=== PATIENT | female | born 1955 | race Caucasian/White ===

== ENCOUNTER 2018-09-03 03:36 | Inpatient (IN) | payer MEDICARE, OTHER ==
--- NOTE | 2018-09-03 03:42 | ERNOTE ---
Abdominal HPI - General Chief Complaint: Abdominal Pain Time Seen by Provider: 09/03/18 03:41 Source: patient Exam Limitations: no limitations - Immun/Allergies/Home Medications Allergies/Adverse Reactions: Allergies erythromycin base Allergy (Verified 09/03/18 04:43) metoclopramide [From Reglan] Allergy (Verified 09/03/18 04:43) paroxetine [From Paxil] Allergy (Verified 09/03/18 04:43) Tetracyclines Allergy (Verified 09/03/18 04:43) Home Medications: HOME MEDICATIONS Albuterol Sulfate [Ventolin HFA] 2 puff INHALATION Q6H 09/03/18 [Last Taken Unknown] Allopurinol [Zyloprim (Allopurinol)] 100 mg PO DAILY 09/03/18 [Last Taken Unknown] Atorvastatin Calcium 40 mg PO DAILY 09/03/18 [Last Taken Unknown] Dicyclomine HCl [Bentyl] 20 mg PO QID 09/03/18 [Last Taken Unknown] Gabapentin [Neurontin] 300 mg PO TID 09/03/18 [Last Taken Unknown] Gemfibrozil 600 mg PO DAILY 09/03/18 [Last Taken Unknown] Glimepiride 4 mg PO BID 09/03/18 [Last Taken Unknown] Insulin Glargine,Hum.rec.anlog [Lantus] 36 units SC DAILY 09/03/18 [Last Taken Unknown] Levothyroxine Sodium [Levoxyl] 125 mcg PO DAILY 09/03/18 [Last Taken Unknown] Omeprazole 20 mg PO DAILY 09/03/18 [Last Taken Unknown] Quetiapine Fumarate [Seroquel Xr] 100 mg PO HS 09/03/18 [Last Taken Unknown] Tiotropium [place] [Spiriva] 18 mcg INHALATION DAILY 09/03/18 [Last Taken Unknown] Venlafaxine HCl [Venlafaxine HCl ER] 150 mg PO BID 09/03/18 [Last Taken Unknown] metFORMIN HCL [Metformin HCl] 850 mg PO BID 09/03/18 [Last Taken Unknown] traZODone HCL [Trazodone HCl] 100 mg PO HS 09/03/18 [Last Taken Unknown] - History of Present Illness Narrative: Pt states approx 11:00 yesterday she began to have abdominal pain & bloating. She tried a suppository which gave small results. She tried oral laxatives without any improvement. She went to [facility] and was diagnosed with a SBO. Dr Michaels called me at 01:50 and I spoke to both Dr. Sullivan and Dr. Harrington about the transfer and they agreed to manage the patient once here. I accepted the patient in transfer. Pt arrived by [facility] with NG tube in place. Pt was very uncomfortable and placing NG to suction produced significant clear/ green fluid. Timing: getting worse Quality: moderate, severe, aching, fullness Activities at Onset: none Modifying Factors - (Worsens): Present: sitting up Associated Symptoms: Present: nausea, vomiting Prior Abdominal Problems: Present: similar symptoms - one previous SBO. Prior Treatment: Present: recently seen, treated by physician Review of Systems - Review of Systems Constitutional: Absent: recent illness, fever, chills Respiratory: Absent: shortness of breath Cardiology: Absent: chest pain Gastrointestinal/Abdominal: Present: See HPI, nausea, vomiting Genitourinary: Absent: frequency, dysuria Musculoskeletal: Absent: back pain Skin: Present: rash Neurological: Absent: headache Endocrine: Present: excessive sweating Medical History (Last Reviewed 09/03/18 @ 03:58 by Bernardo Yanez DO) Cholecystectomy planned Diabetes fusion of the cervical spine C4,5,6 Surgical History: Surgical History (Last Reviewed 09/03/18 @ 03:58 by Bernardo Yanez DO) H/O abdominal hysterectomy History of tonsillectomy Social History: Preferred Language Polish No Social History Section defined Physical Exam - Physical Exam General Appearance: Present: wd/wn, alert, mild distress Head Exam: Present: normal inspection, no evidence of injury Eye Exam: Normal inspection: bilateral, Eyelid inflammation: right Neck: Present: normal inspection, nontender, supple Respiratory: Present: no respiratory distress, normal breath sounds, no accessory muscle use Cardiovascular/Chest: Present: regular rate, rhythm Gastrointestinal/Abdominal: Present: abnormal bowel sounds - very slow but present, distended. Absent: guarding, rebound Back Exam: Present: normal inspection, no vertebral tenderness Extremity Exam: Present: normal inspection, no edema Neurological Exam: Present: alert, oriented, normal mood/affect, no motor/sensory deficits Skin Exam: Present: normal color, warm/dry Lymphatic Exam: Present: no adenopathy Progress - Results and Orders Patient's Lab Results:: I have reviewed the patient's lab results. Results and Orders: Labs from [facility] WBC; 10.1, H/H 14.9/ 44, PLT 306. UA 30 protein CMP: Glucose 291, alk phos 207, gap 16, protein 8.9. lipase 60. UDS tricyclic pos, otherwise WNL. - Vital Signs Patient's Vital Signs:: I have reviewed the patient's vital signs. - X-Ray X-Ray #1 X-Ray: abdomen Interpretation: Reviewed by me X-ray Comments: From K: flat and up of abdomen shows large dilated loops of bowel with a/f levels. Departure Clinical Impression: Small bowel obstruction - Departure Disposition: Still a patient Condition: Fair
[2018-09-03] MEDS ORDERED: PROCHLORPERAZINE EDISYLATE 5 MG/ML VIAL IV ONE (03:56)
[2018-09-03] MEDS ORDERED: MORPHINE SULFATE 2 MG/ML DISP.SYRIN IV ONE (03:57)
[2018-09-03] MEDS ORDERED: MORPHINE SULFATE 2 MG/ML DISP.SYRIN IV PRN (04:38)
[2018-09-03] MEDS ORDERED: ACETAMINOPHEN 1,000 MG/100 ML BTL IV PRN (07:01)
[2018-09-03] MEDS: NORMAL SALINE 1,000 ML IV PRN ×3 (07:42→22:05)
[2018-09-03] MEDS: ONDANSETRON HCL/PF 2 MG/ML VIAL IV PRN ×3 (07:46→20:42)
[2018-09-03] MEDS: ACETAMINOPHEN 1,000 MG/100 ML BTL IV PRN ×3 (07:52→20:44)
--- NOTE | 2018-09-03 08:20 | CONS ---
- Reason for consultation (1) Small bowel obstruction Date of Service: 09/03/18 HPI - General Date of Service: 09/03/18 Narrative: SBO Source: patient Exam Limitations: no limitations - History of Present Illness Initial Comments: Abner is a pleasant 63-year-old female who developed abdominal pain yesterday around 11 AM. She has had nausea and vomiting 5-6 times. She has a previous history of a small bowel obstruction one time. She has a previous history of an open cholecystectomy, appendectomy, and a hysterectomy. She has not passed any gas or had a bowel movement since yesterday. She feels as though her abdominal pain is getting worse. She has an NG tube in place. She is also feeling very hot. She is requesting ice chips. Timing/Duration: 24 hours Severity: moderate Modifying Factors - (Worsens): Reports: eating, movement Modifying Factors - (Improves): Reports: medication Associated Symptoms: fever/chills, loss of appetite, malaise, nausea, vomiting Allergies/Adverse Reactions: Allergies erythromycin base Allergy (Verified 09/03/18 04:43) metoclopramide [From Reglan] Allergy (Verified 09/03/18 04:43) paroxetine [From Paxil] Allergy (Verified 09/03/18 04:43) Tetracyclines Allergy (Verified 09/03/18 04:43) Home Medications: Home Medications Medication Instructions Recorded Last Taken Albuterol Sulfate [Ventolin HFA] 2 puff INHALATION Q6H 09/03/18 Unknown Allopurinol [Zyloprim 100 mg PO DAILY 09/03/18 Unknown (Allopurinol)] Atorvastatin Calcium 40 mg PO DAILY 09/03/18 Unknown Dicyclomine HCl [Bentyl] 20 mg PO QID 09/03/18 Unknown Gabapentin [Neurontin] 300 mg PO TID 09/03/18 Unknown Gemfibrozil 600 mg PO DAILY 09/03/18 Unknown Glimepiride 4 mg PO BID 09/03/18 Unknown Insulin Glargine,Hum.rec.anlog 36 units SC DAILY 09/03/18 Unknown [Lantus] Levothyroxine Sodium [Levoxyl] 125 mcg PO DAILY 09/03/18 Unknown Omeprazole 20 mg PO DAILY 09/03/18 Unknown Quetiapine Fumarate [Seroquel Xr] 100 mg PO HS 09/03/18 Unknown Tiotropium [place] [Spiriva] 18 mcg INHALATION DAILY 09/03/18 Unknown Venlafaxine HCl [Venlafaxine HCl 150 mg PO BID 09/03/18 Unknown ER] metFORMIN HCL [Metformin HCl] 850 mg PO BID 09/03/18 Unknown traZODone HCL [Trazodone HCl] 100 mg PO HS 09/03/18 Unknown Procedures Other peripheral nerve or ganglion decompression or lysis of adhesions (08/10/04) Release of carpal tunnel (08/10/04) Appendectomy Open cholecystectomy Hysterectomy Medications - Medications Current Medications: Current Medications Acetaminophen (Ofirmev) 1,000 mg in 100 mls @ 400 mls/hr IV Q6H PRN PRN Reason: Mild Pain Stop: 10/03/18 07:02 Last Admin: 09/03/18 07:52 Dose: 400 mls/hr Documented by: Sodium Chloride (Sodium Chloride 0.9%) 1,000 mls @ 150 mls/hr IV .Q6H40M PRN PRN Reason: HYDRATION Stop: 10/03/18 07:41 Last Admin: 09/03/18 07:42 Dose: 150 mls/hr Documented by: Ondansetron HCl (Zofran) 4 mg IV Q6H PRN PRN Reason: Nausea And Vomiting Stop: 10/03/18 07:34 Last Admin: 09/03/18 07:46 Dose: 4 mg Documented by: Review of Systems - Review of Systems Generalized/Overall Review: Present: Fever, Malaise EENTM: Present: No Symptoms Reported Respiratory: Present: No Symptoms Reported Cardiac: Present: No Symptoms Reported Abdominal: Present: Nausea, Vomiting, Abdominal Pain, Constipation Genitourinary: Present: No Symptoms Reported Musculoskeletal: Present: No Symptoms Reported Neurological: Present: No Symptoms Reported Skin: Present: No Symptoms Reported Endocrine: Present: No Symptoms Reported Physical Examination - Exam Vital Signs: Vital Signs - Last Taken Temp 36.0 C 09/03/18 05:37 Pulse 98 09/03/18 05:37 Resp 18 09/03/18 05:37 BP 134/63 09/03/18 05:37 Pulse Ox 92 L 09/03/18 05:37 O2 Oxygen Delivery Method Room Air Constitutional: Present: Alert, Oriented x3, Cooperative Neck: Present: supple Breasts: Present: Exam deferred Respiratory: Present: lungs clear Cardiovascular/Chest: Present: regular rate, rhythm Abdomen: Present: soft, obese, tender, distended Extremity: Present: normal range of motion Skin Exam: Present: normal color 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 I have ordered a CT scan of the abdomen and pelvis with oral and IV contrast. The oral contrast can be given through the NG tube. This can be both diagnostic and therapeutic. She has had multiple abdominal surgeries that could contribute to adhesions. We'll continue to monitor closely.
[2018-09-03] MEDS ORDERED: DIATRIZOATE MEGLUMINE, SODIUM 30 ML BTL PO ONE (09:25)
--- NOTE | 2018-09-03 09:40 | HP ---
Chief Complaint - Chief Complaint Date of Service: 09/03/18 Time of Service: 09:29 Chief Complaint: abdominal pain History of Present Illness: Patient with PMHx of previous SBO, diabetes, hypothyroidism, anxiety, depression, presented to the [place] ED for abdominal pain, and was diagnosed with a small bowel obstruction. She reports having had a hysterectomy approximately 21 years ago. She developed right sided abdominal pain yesterday. She reports always needing to push on her right lower abdomen in order to urinate or have a bowel movement. Her last BM was yesterday, and she also last urinated yesterday. She denies having a history of a hernia or cancer. Denies CP, upper respiratory symptoms, lower extremity swelling. She does report some shortness of breath, and is a tobacco user. Medical History (Last Reviewed 09/03/18 @ 05:31 by Myah Alford RN) Cholecystectomy planned Diabetes fusion of the cervical spine C4,5,6 Surgical History: Surgical History (Last Reviewed 09/03/18 @ 05:31 by Myah Alford RN) H/O abdominal hysterectomy History of tonsillectomy Family History: Family History (Last Updated 09/03/18 @ 05:31 by Myah Alford RN) Other No pertinent family history in first degree relatives Social History: Patient Lives/Resources With Spouse Utilized Occupation Disabled Preferred Language Hungarian Do you have any yarsanism or No cultural preference? Smoking Status Current every day smoker Have you smoked in the past 12 Yes months Alcohol Use none Drug Use none No Social History Section defined Review Of Systems (GEN) - Review of Systems Generalized/Overall Review: Absent: Fever Respiratory: Present: Shortness of Breath. Absent: Cough Cardiac: Absent: Chest Pain, Edema Abdominal: Present: Nausea, Vomiting. Absent: Diarrhea Genitourinary: Present: Oliguria. Absent: Frequency Immunizations: IMMUNIZATION HX Immunizations Up to Date Yes History of Influenza Vaccine Yes Hx Pneumococcal Vaccination Yes Allergies/Adverse Reactions: Allergies Allergy/AdvReac Type Severity Reaction Status Date / Time erythromycin base Allergy Verified 09/03/18 04:43 metoclopramide [From Reglan] Allergy Verified 09/03/18 04:43 paroxetine [From Paxil] Allergy Verified 09/03/18 04:43 Tetracyclines Allergy Verified 09/03/18 04:43 Home Medications: HOME MEDICATIONS Albuterol Sulfate [Ventolin HFA] 2 puff INHALATION Q6H 09/03/18 [Last Taken Unknown] Allopurinol [Zyloprim (Allopurinol)] 100 mg PO DAILY 09/03/18 [Last Taken Unknown] Atorvastatin Calcium 40 mg PO DAILY 09/03/18 [Last Taken Unknown] Dicyclomine HCl [Bentyl] 20 mg PO QID 09/03/18 [Last Taken Unknown] Gabapentin [Neurontin] 300 mg PO TID 09/03/18 [Last Taken Unknown] Gemfibrozil 600 mg PO DAILY 09/03/18 [Last Taken Unknown] Glimepiride 4 mg PO BID 09/03/18 [Last Taken Unknown] Insulin Glargine,Hum.rec.anlog [Lantus] 36 units SC DAILY 09/03/18 [Last Taken Unknown] Levothyroxine Sodium [Levoxyl] 125 mcg PO DAILY 09/03/18 [Last Taken Unknown] Omeprazole 20 mg PO DAILY 09/03/18 [Last Taken Unknown] Quetiapine Fumarate [Seroquel Xr] 100 mg PO HS 09/03/18 [Last Taken Unknown] Tiotropium [place] [Spiriva] 18 mcg INHALATION DAILY 09/03/18 [Last Taken Unknown] Venlafaxine HCl [Venlafaxine HCl ER] 150 mg PO BID 09/03/18 [Last Taken Unknown] metFORMIN HCL [Metformin HCl] 850 mg PO BID 09/03/18 [Last Taken Unknown] traZODone HCL [Trazodone HCl] 100 mg PO HS 09/03/18 [Last Taken Unknown] Exam - Exam Vital Signs: Vital Signs - Last Taken Temp 36.0 C 09/03/18 08:37 Pulse 100 09/03/18 08:37 Resp 16 09/03/18 08:37 BP 132/78 09/03/18 08:37 Pulse Ox 94 09/03/18 08:37 Constitutional: Present: Alert, Oriented x3, Cooperative, No distress, Obese Respiratory: Present: decreased breath sounds. Absent: wheezing Cardiovascular/Chest: Present: regular rate, rhythm Abdomen: Present: obese, tender Extremity: Absent: lower extremity edema Neurologic: Present: normal mood/affect Eye contact: Present: cooperative, good eye contact Assessment/Plan - Assessment/Plan (1) Small bowel obstruction Assessment: Surgery has been consulted, and will follow their recommendations. NG tube in place, and CT abdomen/pelvis pending. She has had this before. Pain control with IV tylenol, and nausea control with zofran. Problem: Acute (2) Diabetes Assessment: Glucose checks at meals and qhs, and will administer low dose SSI. Holding home lantus while NPO. Problem: Acute
[2018-09-03] MEDS: NICOTINE 14 MG PATC TD SCH (11:36)
[2018-09-03] MEDS: TIOTROPIUM BROMIDE 5 CAP INHALER IH SCH (11:37)
[2018-09-03] MEDS: INSULIN LISPRO 100 UNITS/ML VIAL SC SCH ×3 (13:01→20:52)
[2018-09-03] MEDS: ALBUTEROL SULFATE 2.5 MG/0.5 ML VIAL.NEB IH SCH ×2 (13:45→18:10)
--- NOTE | 2018-09-03 13:53 | PN ---
Dictated Progress Note - Date and Time Seen: Date: 09/03/18 Time: 13:52 - Progress Note Narrative: Vital Signs - Last Taken Temp 36 C 09/03/18 09:00 Pulse 98 09/03/18 13:45 Resp 24 H 09/03/18 13:45 BP 132/78 09/03/18 09:00 Pulse Ox 96 09/03/18 13:45 Pt states pain is decreased. She is getting a breathing treatment now. I reviewed her CT scan images and report. Will await conservative management, at this time.
[2018-09-04] MEDS: ALBUTEROL SULFATE 2.5 MG/0.5 ML VIAL.NEB IH SCH ×4 (00:53→18:26)
[2018-09-04] MEDS: ONDANSETRON HCL/PF 2 MG/ML VIAL IV PRN ×3 (02:51→22:39)
[2018-09-04] MEDS: ACETAMINOPHEN 1,000 MG/100 ML BTL IV PRN ×3 (02:54→15:30)
[2018-09-04] MEDS: NORMAL SALINE 1,000 ML IV PRN ×2 (05:14→12:28)
[2018-09-04] MEDS: INSULIN LISPRO 100 UNITS/ML VIAL SC SCH ×4 (06:47→20:00)
[2018-09-04] MEDS: TIOTROPIUM BROMIDE 5 CAP INHALER IH SCH (08:03)
--- NOTE | 2018-09-04 09:06 | PN ---
Dictated Progress Note - Date and Time Seen: Date: 09/04/18 Time: 09:05 - Progress Note Narrative: Feeling better this am. Less abdominal pain. Has had two bm. denies flatus. Admits to drinking water. Has very high NG output, which makes more sense with the addition of extra water intake. She had glasses taken away and is now drinking out of emesis bags. Denies nausea, really wants to drink and eat. NAD abd obese, sl distended, no guarding, non tender to palpation Vital Signs - Last Taken Temp 36.2 C 09/04/18 07:00 Pulse 93 09/04/18 07:00 Resp 20 09/04/18 07:00 BP 129/82 09/04/18 07:00 Pulse Ox 95 09/04/18 07:00 Imp: SBO resolving pt non compliant- drinking fluids around NG tube obese DM Plan: cont NG PAS Add Lovenox clamp NG, add sips clears, dc in 6 hours if no n/v
[2018-09-04] MEDS: ENOXAPARIN SODIUM 40 MG/0.4 ML SYRG SC SCH (09:26)
[2018-09-04] MEDS: NICOTINE 14 MG PATC TD SCH (09:26)
--- NOTE | 2018-09-04 11:25 | PN ---
Subjective - Date and Time Seen Date: 09/04/18 Time: 11:15 Subjective Narrative: Patient reports her abdominal pain is somewhat better than yesterday, and she had a BM. She feels like she would have less nausea if she could have liquids. Objective - Review of Systems Generalized/Overall Review: Denies: Fever Respiratory: Denies: Shortness of Breath Cardiac: Denies: Chest Pain Abdominal: Reports: Nausea, Abdominal Pain. Denies: Diarrhea Genitourinary Symptoms: Denies: Dysuria - Vitals Vitals: Last Vital Signs Temp 36.8 C 09/04/18 10:57 Pulse 98 09/04/18 10:57 Resp 20 09/04/18 10:57 BP 131/73 09/04/18 10:57 Pulse Ox 99 09/04/18 10:57 - Exam Constitutional: Present: Alert, Oriented x3, Cooperative, Obese Respiratory: Present: normal breath sounds, no respiratory distress Cardiovascular/Chest: Present: regular rate, rhythm Abdomen: Present: distended, hypoactive - NG tube in place Extremity: Absent: lower extremity edema Neurologic: Present: normal mood/affect Assessment/Plan - Problems/Diagnosis (1) Small bowel obstruction Problem: Acute Narrative: Day 2 of hospitalization, and she is having some improvement. She had a BM, and her abdominal pain has improved. Continue pain control per Dr. Vargas, and will defer diet recommendations to her as well. She has IV morphine prn ordered, but has not used it. Continue IV zofran prn. She has multiple po medications, which are also held while she is NPO, but will resume when able. (2) Diabetes Problem: Acute Narrative: Her blood sugars have been in the 200's. Holding her home lantus while she is NPO, and using only SSI. Has received 12 U humalog thus far. Will restart her lantus when diet has been resumed.
[2018-09-04] MEDS: DOCUSATE SODIUM 100 MG CAPSULE PO SCH ×2 (13:14→20:16)
[2018-09-04] MEDS ORDERED: PROCHLORPERAZINE EDISYLATE 5 MG/ML VIAL IV ONE (23:09)
[2018-09-04 23:35] LABS: Anion Gap 15.4 mmol/L (6.8-13.8); BUN/Creatinine Ratio 14.7 (9.0-21.6); Bilirubin, Total 0.2 mg/dL (0.0-1.1); Ca. Corrected For Albumin 9.3 mg/dL (8.4-10.2); Calcium * 8.8 mg/dL (7.9-10.9); Carbon Dioxide 22.9 mmol/L (24-32.6); Potassium 3.3 mmol/L (3.4-4.6); Total Protein 7.5 gm/dL (6.2-8.2)
[2018-09-05] MEDS: ALBUTEROL SULFATE 2.5 MG/0.5 ML VIAL.NEB IH SCH ×4 (00:50→18:24)
[2018-09-05] MEDS ORDERED: PROCHLORPERAZINE EDISYLATE 5 MG/ML VIAL IV ONE (02:45)
[2018-09-05] MEDS: ACETAMINOPHEN 325 MG TABLET PO PRN ×2 (02:51→21:30)
[2018-09-05] MEDS: ONDANSETRON HCL/PF 2 MG/ML VIAL IV PRN (06:48)
[2018-09-05] MEDS: INSULIN LISPRO 100 UNITS/ML VIAL SC SCH ×4 (06:53→21:21)
[2018-09-05] MEDS: DOCUSATE SODIUM 100 MG CAPSULE PO SCH ×2 (08:30→21:20)
[2018-09-05] MEDS: ENOXAPARIN SODIUM 40 MG/0.4 ML SYRG SC SCH (08:32)
[2018-09-05] MEDS: TIOTROPIUM BROMIDE 5 CAP INHALER IH SCH (08:32)
--- NOTE | 2018-09-05 09:21 | PN ---
Dictated Progress Note - Date and Time Seen: Date: 09/05/18 Time: 09:20 - Progress Note Narrative: doing well, still having loose stools, no n/v, no abd pain Vital Signs - Last Taken Temp 36.3 C 09/05/18 06:56 Pulse 86 09/05/18 06:56 Resp 18 09/05/18 06:56 BP 120/62 09/05/18 06:56 Pulse Ox 97 09/05/18 06:56 Abnormal/Pending Laboratory Last 24 HRS 09/04/18 23:20 Potassium 3.3 L Carbon Dioxide 22.9 L Anion Gap 15.4 H Random Glucose 183 H Albumin 3.0 L NAD abd soft, non tender non labored breathing IMP: resolved SBO Plan: gen surg will sign off, call if questions advance diet
[2018-09-05] MEDS: NICOTINE 14 MG PATC TD SCH (09:45)
--- NOTE | 2018-09-05 11:04 | PN ---
Subjective - Date and Time Seen Date: 09/05/18 Time: 09:43 Subjective Narrative: Pt states that she did well overnight, no acute events. She slept comfortable. She is passing gas/having BM. She denies abdominal pain. She is able to tolerate clears. VS stable. Objective - Review of Systems Generalized/Overall Review: Denies: Weakness, Chills, Fatigue EENTM: Reports: No Symptoms Reported Respiratory: Denies: Cough, Shortness of Breath Cardiac: Denies: Chest Pain, Palpitations Abdominal: Reports: Other - she is not obstipated. Denies: Nausea, Vomiting, Abdominal Pain, Constipation Genitourinary Symptoms: Reports: No Symptoms Reported Musculoskeletal Complaints: Reports: No Symptoms Reported Neurological: Reports: No Symptoms Reported Skin: Reports: No Symptoms Reported Endocrine: Reports: No Symptoms Reported - Vitals Vitals: Last Vital Signs Temp 36.3 C 09/05/18 06:56 Pulse 86 09/05/18 06:56 Resp 18 09/05/18 06:56 BP 120/62 09/05/18 06:56 Pulse Ox 97 09/05/18 06:56 - Abnormal Lab Findings Abnormal Lab Findings: Abnormal Lab Results 09/04/18 Range/Units 23:20 Potassium 3.3 L (3.4-4.6) mmol/L Carbon Dioxide 22.9 L (24-32.6) mmol/L Anion Gap 15.4 H (6.8-13.8) mmol/L Random Glucose 183 H (70-110) mg/dL Albumin 3.0 L (3.4-5.0) gm/dl - Exam Constitutional: Present: Alert, Oriented x3, Cooperative, No distress, Morbidly obese ENT Exam: Present: hearing grossly normal. Absent: nasal drainage Respiratory: Present: lungs clear, normal breath sounds, no respiratory distress Cardiovascular/Chest: Present: normal peripheral pulses, regular rate, rhythm, no edema Abdomen: Present: Normal bowel sounds, soft, no rebound tenderness Extremity: Absent: lower extremity edema, leg pain Skin Exam: Present: normal color, warm/dry Neurologic: Present: alert, oriented x 3 Appearance: Present: appropriate appearance, appropriate insight Eye contact: Present: cooperative, good eye contact Thoughts: Present: normal thought pattern, normal mood /affect Assessment/Plan Plan Narrative: Day 3 of stay. She is much more comfortable than previously. Will start to advance her diet today. She is complaining of gas-will add simethicone. Form a sbo standpoint, home tomorrow if she has no set backs and tolerates diet. Will restart her home meds. Will monitor blood sugars but this should improve with restarting her long acting insulin. Will continue SSI. - Problems/Diagnosis (1) Small bowel obstruction Problem: Acute (2) Diabetes Problem: Acute (3) Obesity (BMI 30-39.9) Problem: Acute
[2018-09-05] MEDS: SIMETHICONE 80 MG TAB.CHEW PO PRN ×2 (11:23→16:49)
[2018-09-05] MEDS ORDERED: INSULIN GLARGINE,HUM.REC.ANLOG 100 UNITS/ML VIAL SC SCH (21:00)
[2018-09-05] MEDS ORDERED: QUEtiapine FUMARATE 100 MG TABLET PO SCH (21:00)
[2018-09-05] MEDS ORDERED: traZODone HCL 50 MG TABLET PO SCH (21:00)
[2018-09-05] MEDS ORDERED: GLIMEPIRIDE 4 MG TABLET PO SCH (21:00)
[2018-09-05] MEDS ORDERED: GLIMEPIRIDE 2 MG TABLET ONE (21:12)
[2018-09-05] MEDS ORDERED: ACETAMINOPHEN 500 MG TABLET ONE (21:27)
[2018-09-06] MEDS: ALBUTEROL SULFATE 2.5 MG/0.5 ML VIAL.NEB IH SCH ×3 (00:31→12:42)
[2018-09-06] MEDS: INSULIN LISPRO 100 UNITS/ML VIAL SC SCH ×2 (06:59→11:16)
[2018-09-06] MEDS ORDERED: LEVOTHYROXINE SODIUM 100 MCG TABLET PO SCH (07:00)
[2018-09-06] MEDS ORDERED: LEVOTHYROXINE SODIUM 125 MCG TABLET PO SCH (07:00)
[2018-09-06] MEDS ORDERED: GLIMEPIRIDE 4 MG TABLET PO SCH (07:30)
[2018-09-06] MEDS ORDERED: GABAPENTIN 300 MG CAPSULE PO SCH (08:00)
[2018-09-06] MEDS: QUEtiapine FUMARATE 100 MG TABLET PO SCH ×2 (08:57→12:07)
[2018-09-06] MEDS: DOCUSATE SODIUM 100 MG CAPSULE PO SCH (08:57)
[2018-09-06] MEDS: TIOTROPIUM BROMIDE 5 CAP INHALER IH SCH (08:58)
[2018-09-06] MEDS: ENOXAPARIN SODIUM 40 MG/0.4 ML SYRG SC SCH (09:00)
[2018-09-06] MEDS ORDERED: ROSUVASTATIN CALCIUM 20 MG TABLET PO SCH (09:00)
[2018-09-06] MEDS: NICOTINE 14 MG PATC TD SCH (09:02)
--- NOTE | 2018-09-06 09:06 | PN ---
Dictated Progress Note - Date and Time Seen: Date: 09/06/18 Time: 09:05 - Progress Note Narrative: Feeling better today, feels ready for dc later today. no concerns. beltran diet. Vital Signs - Last Taken Temp 36.6 C 09/06/18 07:11 Pulse 75 09/06/18 07:11 Resp 18 09/06/18 07:11 BP 128/75 09/06/18 07:11 Pulse Ox 98 09/06/18 07:11 NAD abd soft, obese resp non labored IMP: resolved SBO DM Plan Dc home later today
[2018-09-06] MEDS: SIMETHICONE 80 MG TAB.CHEW PO PRN (09:09)
--- NOTE | 2018-09-06 15:14 | DS ---
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 for confirmed SBO. She has an NG tube placed for roughly 48 hours, her pain and symptoms resolved. She started having BM/passing gas on her 2nd day here. Her Nausea/vomiting resolved and she has had no complications or set backs in the last 24 hrs. She is tolerating a regular diet. Her VS have been stable and she has been afebrile. Her blood sugars were slightly elevated while here but were better controlled once her home insulin dose was resumed when she was eating again. She agrees to follow up with [facility] the next 7 days. Advised that she work on her diet/exercise which will help with all of her chronic medical condtions. She is in stable condition, ready to go home at time of discharge. No changes to her chronic medications. No new medications added. Advised metamucil to help with regulation Procedures Performed: none Results and Findings: Lab Pending Results 09/03/18 14:20: Troponin I Less than 0.017 09/03/18 18:43: Troponin I Less than 0.017 09/04/18 23:20: Sodium 136, Plasma Sodium 137, Potassium 3.3 L, Chloride 101, Carbon Dioxide 22.9 L, Anion Gap 15.4 H, BUN 11, Creatinine 0.75, Est GFR (Non- Af Amer) 83, BUN/Creatinine Ratio 14.7, Random Glucose 183 H, Calcium 8.8, Calcium Adj for Albumin 9.3, Total Bilirubin 0.2, AST 23, ALT 22, Alkaline Phosphatase 165, Total Protein 7.5, Albumin 3.0 L, Lipase 229 Discharge Location: Home Disposition: Home self-care Condition: Fair Discharge Activity: Activity as tolerated Discharge Diet: Consistent carbs Additional Patient Instructions (free text): -Please make TCM appointment unless [facility] discharge. Thank you! Rukhsana @ [phone]. Complete Home Medications List: Complete Home Medication List: Albuterol Sulfate [Ventolin HFA] 2 puff INHALATION Q6H PRN 09/03/18 Allopurinol [Zyloprim] 100 mg PO DAILY 09/03/18 Atorvastatin Calcium 40 mg PO DAILY 09/03/18 Dicyclomine HCl [Bentyl] 20 mg PO QID 09/03/18 Gabapentin [Neurontin] 300 mg PO TID 09/03/18 Gemfibrozil 600 mg PO DAILY 09/03/18 Glimepiride 4 mg PO BID 09/03/18 Hydroxyzine HCl 10 mg PO DAILY PRN 09/03/18 Insulin Glargine,Hum.rec.anlog [Lantus] 28 units SC HS 09/03/18 Levothyroxine Sodium [Levo-T] 100 mcg PO DAILY 09/03/18 Levothyroxine Sodium [Levoxyl] 125 mcg PO DAILY 09/03/18 Loratadine 10 mg PO DAILY 09/03/18 Mometasone Furoate [Elocon] 45 gm TOPICAL BID 09/03/18 Omeprazole 20 mg PO DAILY 09/03/18 Promethazine HCl 12.5 mg PO Q4H PRN 09/03/18 QUEtiapine FUMARATE [Seroquel] 50 mg PO .Q12 PRN 09/03/18 QUEtiapine FUMARATE [Seroquel] 100 mg PO BID 09/03/18 QUEtiapine FUMARATE [Seroquel] 400 mg PO HS 09/03/18 SUMAtriptan SUCCINATE [Imitrex] 50 mg PO Q2H PRN MDD 200mg 09/03/18 Venlafaxine HCl [Venlafaxine HCl ER] 150 mg PO BID 09/03/18 metFORMIN HCL [Metformin HCl] 850 mg PO BID 09/03/18 traZODone HCL [Trazodone HCl] 100 mg PO HS 09/03/18
[2018-09-06 15:50] VITALS: BP 153/80
== END 2018-09-06 16:05 | disposition home or self-care (01) | DRG 390 ==
LOC: ER 03:36 → MS 04:19
PROVIDERS: ADMIT Family Medicine; ATTEND Family Medicine
CPT/HCPCS: 36415; 74177; 80053; 83690; 84484; 93005; 94640; 94664; 96374; 96375; 99284; J0131; J2405

== ENCOUNTER 2019-07-14 07:47 | Inpatient (IN) ==
--- NOTE | 2019-07-14 08:52 | ERNOTE ---
Abdominal HPI - Narrative Date of Service: 07/14/19 - General Chief Complaint: Abdominal Pain Time Seen by Provider: 07/14/19 08:03 Source: patient, EMS notes reviewed Exam Limitations: no limitations - Immun/Allergies/Home Medications Immunizatons: IMMUNIZATION HX Immunizations Up to Date Yes History of Influenza Vaccine Yes Hx Pneumococcal Vaccination Yes Allergies/Adverse Reactions: Allergies erythromycin base Allergy (Verified 07/14/19 08:01) metoclopramide [From Reglan] Allergy (Verified 07/14/19 08:01) paroxetine [From Paxil] Allergy (Verified 07/14/19 08:01) Tetracyclines Allergy (Verified 07/14/19 08:01) Home Medications: HOME MEDICATIONS Albuterol Sulfate [Ventolin HFA] 2 puff INHALATION Q6H PRN 09/03/18 [Last Taken Unknown] Allopurinol [Zyloprim] 100 mg PO DAILY 09/03/18 [Last Taken Unknown] Atorvastatin Calcium 40 mg PO DAILY 09/03/18 [Last Taken Unknown] Dicyclomine HCl [Bentyl] 20 mg PO QID 09/03/18 [Last Taken Unknown] Gabapentin [Neurontin] 300 mg PO TID 09/03/18 [Last Taken Unknown] Gemfibrozil 600 mg PO DAILY 09/03/18 [Last Taken Unknown] Glimepiride 4 mg PO BID 09/03/18 [Last Taken Unknown] Hydroxyzine HCl 10 mg PO DAILY PRN 09/03/18 [Last Taken Unknown] Insulin Glargine,Hum.rec.anlog [Lantus] 28 units SC HS 09/03/18 [Last Taken Unknown] Levothyroxine Sodium [Levo-T] 100 mcg PO DAILY 09/03/18 [Last Taken Unknown] Levothyroxine Sodium [Levoxyl] 125 mcg PO DAILY 09/03/18 [Last Taken Unknown] Loratadine 10 mg PO DAILY 09/03/18 [Last Taken Unknown] Mometasone Furoate [Elocon] 45 gm TOPICAL BID 09/03/18 [Last Taken Unknown] Omeprazole 20 mg PO DAILY 09/03/18 [Last Taken Unknown] Promethazine HCl 12.5 mg PO Q4H PRN 09/03/18 [Last Taken Unknown] QUEtiapine FUMARATE [Seroquel] 50 mg PO .Q12 PRN 09/03/18 [Last Taken Unknown] QUEtiapine FUMARATE [Seroquel] 100 mg PO BID 09/03/18 [Last Taken Unknown] QUEtiapine FUMARATE [Seroquel] 400 mg PO HS 09/03/18 [Last Taken Unknown] SUMAtriptan SUCCINATE [Imitrex] 50 mg PO Q2H PRN MDD 200mg 09/03/18 [Last Taken Unknown] Venlafaxine HCl [Venlafaxine HCl ER] 150 mg PO BID 09/03/18 [Last Taken Unknown] metFORMIN HCL [Metformin HCl] 850 mg PO BID 09/03/18 [Last Taken Unknown] traZODone HCL [Trazodone HCl] 100 mg PO HS 09/03/18 [Last Taken Unknown] - History of Present Illness Narrative: patient presents to ed per ambulance tranferred from [facility] with dx of small bowel obstruction case had been discussed with dr martinez who accepted transfer, Timing: constant Quality: moderate, dullness, fullness, stabbing Activities at Onset: none Modifying Factors - (Improves): Present: other - nothing Modifying Factors - (Worsens): Present: other - nothing Associated Symptoms: Present: denies symptoms Prior Abdominal Problems: Present: similar symptoms Prior Treatment: Present: recently seen, treated by physician, other - see above Review of Systems - Review of Systems Constitutional: Present: See HPI EYE: Present: no symptoms reported ENT: Present: no symptoms reported Respiratory: Present: no symptoms reported Cardiology: Present: no symptoms reported Gastrointestinal/Abdominal: Present: See HPI, nausea, vomiting, abdominal pain, eating less, drinking less Genitourinary: Present: no symptoms reported Musculoskeletal: Present: no symptoms reported Skin: Present: no symptoms reported Neurological: Present: no symptoms reported Endocrine: Present: no symptoms reported Hematologic/Lymphatic: Present: no symptoms reported Psych: Present: no symptoms reported Medical History (Last Reviewed 07/14/19 @ 08:35 by Chen Frank RN) Cholecystectomy planned Diabetes fusion of the cervical spine C4,5,6 Surgical History: Surgical History (Last Reviewed 07/14/19 @ 08:35 by Chen Frank RN) H/O abdominal hysterectomy History of tonsillectomy Family History: Family History (Last Reviewed 07/14/19 @ 08:35 by Chen Frank RN) Other No pertinent family history in first degree relatives Social History: (Last Reviewed 07/14/19 @ 08:35 by Chen Frank RN) Tobacco: Smoking Status: Current every day smoker Physical Exam - Physical Exam General Appearance: Present: moderate distress, anxious Head Exam: Present: normal inspection, no evidence of injury Eye Exam: Normal inspection: bilateral, PERRL: bilateral, EOMI: bilateral Ears, Nose, Throat: Present: normal ENT inspection, normal pharynx Neck: Present: normal inspection, nontender Respiratory: Present: no respiratory distress, normal breath sounds, no accessory muscle use, chest nontender, lungs clear Cardiovascular/Chest: Present: regular rate, rhythm, no murmur, normal per ipheral pulses Gastrointestinal/Abdominal: Present: tenderness, abnormal bowel sounds, distended, other - abdomen morbidly obeses Back Exam: Present: normal inspection, normal range of motion, no CVA tenderness Extremity Exam: Present: normal inspection, non-tender, normal range of motion, no edema Neurological Exam: Present: alert, oriented, normal mood/affect, no motor/sensory deficits Skin Exam: Present: normal color, warm/dry Lymphatic Exam: Present: no adenopathy Progress - Date and Time Seen: Date and Time: 07/14/19 08:50 condition unchanged, case discussed with dr laurent who accepts patient - Results and Orders Patient's Lab Results:: I have reviewed the patient's lab results. - Vital Signs Patient's Vital Signs:: I have reviewed the patient's vital signs. Vital Signs: Vital Signs 07/14/19 07:56 07/14/19 08:28 Temperature 36.9 C 36.3 C Pulse Rate 98 105 H Respiratory Rate 18 26 H Blood Pressure 150/68 H 167/93 H O2 Sat by Pulse Oximetry 90 L 90 L - X-Ray X-Ray #1 X-Ray: chest Interpretation: Interp. by me Marly hamilton in abdomen - Progress/Reassessment Chief Complaint: Abdominal Pain - Transfer of Care Expected Disposition: Admit Plan - Plan Plan: to admit to observation Departure Clinical Impression: Small bowel obstruction - Departure Disposition: Short Term Hospital Inpatient Condition: Serious
[2019-07-14] MEDS: NORMAL SALINE 1,000 ML IV PRN ×2 (09:07→16:24)
[2019-07-14] MEDS ORDERED: ONDANSETRON HCL/PF 2 MG/ML VIAL IV ONE (09:48)
--- NOTE | 2019-07-14 12:02 | HP ---
Chief Complaint - Chief Complaint Date of Service: 07/14/19 Time of Service: 11:57 Chief Complaint: SOB History of Present Illness: Patient with past medical history of previous small bowel obstruction, diabetes, obesity, tobacco use presented to the ER in [place] for vomiting. She had a small bowel obstruction last August, and this feels similar. She was able to eat a small amount yesterday, but started vomiting around 6:00 last night. She feels like she had a fever overnight, but her temperature did not get very high. Her last bowel movement was also last night. An NG tube was placed around 6:00 this morning in [place], and she was transferred here. At the time of my exam, the NG tube is been in place for approximately 5 hours. Her blood pressure and heart rate are high, and she appears to be uncomfortable. She is able to eat ice chips. She still feels nauseated, but has not vomited for several hours. She declines chest pain, shortness of breath, urinary symptoms, lower extremity edema. Medical History (Last Reviewed 07/14/19 @ 10:36 by Alicia Gonsalez RN) Cholecystectomy planned Diabetes fusion of the cervical spine C4,5,6 Surgical History: Surgical History (Last Reviewed 07/14/19 @ 10:36 by Alicia Gonsalez RN) H/O abdominal hysterectomy History of tonsillectomy Family History: Family History (Last Reviewed 07/14/19 @ 10:36 by Alicia Gonsalez RN) Other No pertinent family history in first degree relatives Social History: (Last Updated 07/14/19 @ 10:38 by Alicia Gonsalez RN) Social History: Marital status: lives independently: No parent marital status: current occupational status: other 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 Absent: Constipation Genitourinary: Absent: Dysuria Musculoskeletal: Present: No Symptoms Reported Immunizations: IMMUNIZATION HX Immunizations Up to Date Yes History of Influenza Vaccine Yes Hx Pneumococcal Vaccination Yes Allergies/Adverse Reactions: Allergies Allergy/AdvReac Type Severity Reaction Status Date / Time paroxetine [From Paxil] Allergy Intermediate hallucinati Verified 11/06/19 12:24 ons erythromycin base Allergy Mild Hives Verified 07/14/19 12:24 metoclopramide [From Reglan] Allergy Mild Hives Verified 07/14/19 12:24 Tetracyclines Allergy Mild Hives Verified 07/14/19 12:24 Home Medications: HOME MEDICATIONS Albuterol Sulfate [Ventolin HFA] 2 puff INHALATION Q6H PRN 09/03/18 [Last Taken Unknown] Allopurinol [Zyloprim] 100 mg PO DAILY 09/03/18 [Last Taken Unknown] Atorvastatin Calcium 40 mg PO DAILY 09/03/18 [Last Taken Unknown] Gabapentin [Neurontin] 300 mg PO TID 09/03/18 [Last Taken Unknown] Gemfibrozil 600 mg PO DAILY 09/03/18 [Last Taken Unknown] Glimepiride 4 mg PO BID 09/03/18 [Last Taken Unknown] Insulin Glargine,Hum.rec.anlog [Lantus] 38 units SC DAILY 09/03/18 [Last Taken Unknown] Levothyroxine Sodium [Levo-T] 100 mcg PO DAILY 09/03/18 [Last Taken Unknown] Loratadine 10 mg PO DAILY 09/03/18 [Last Taken Unknown] Omeprazole 20 mg PO DAILY 09/03/18 [Last Taken Unknown] Promethazine HCl 12.5 mg PO Q4H PRN 09/03/18 [Last Taken Unknown] QUEtiapine FUMARATE [Seroquel] 50 mg PO Q8H PRN 09/03/18 [Last Taken Unknown] QUEtiapine FUMARATE [Seroquel] 100 mg PO BID@0700,1200 09/03/18 [Last Taken Unknown] QUEtiapine FUMARATE [Seroquel] 200 mg PO HS 09/03/18 [Last Taken Unknown] Venlafaxine HCl [Venlafaxine HCl ER] 150 mg PO BID 09/03/18 [Last Taken Unknown] metFORMIN HCL [Metformin HCl] 850 mg PO BID 09/03/18 [Last Taken Unknown] traZODone HCL [Trazodone HCl] 100 mg PO HS PRN 09/03/18 [Last Taken Unknown] hydrOXYzine HCL [Atarax] 10 mg PO DAILY PRN 07/14/19 [Last Taken Unknown] Exam - Exam Vital Signs: Vital Signs - Last Taken Temp 37.0 C 07/14/19 10:25 Pulse 122 H 07/14/19 11:23 Resp 20 07/14/19 10:25 BP 179/91 H 07/14/19 10:25 Pulse Ox 97 07/14/19 10:25 Constitutional: Present: Alert, Cooperative, Mild distress, Morbidly obese Respiratory: Present: lungs clear, normal breath sounds Cardiovascular/Chest: Present: no edema, tachycardia - 120 Abdomen: Present: obese, hypoactive - NG tube in place Extremity: Absent: lower extremity edema Eye contact: Present: good eye contact Assessment/Plan - Assessment/Plan (1) Small bowel obstruction Assessment: Will give 1 mg IV morphine q2h prn, for a max of 4 doses. She appears uncomfortable on exam, and has objective signs of pain. HR and BP are elevated, and may improve with pain control. NG tube in place. continue ice chips. She has been nauseated, but hasn't vomited for a few hours. Potential clamp of NG tube tomorrow, but will follow Dr. Mead's guidance. Problem: Acute (2) Diabetes Assessment: She reports giving herself Lantus at home, and metformin and glimepiride on her medication list. We will hold the Lantus and glimepiride while she is n.p.o. We will do glucose checks with meals and at bedtime. Lab work was done in [place], so I do not yet have current glucose levels. 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 Would like to give these at bedtime tonight, if her abdominal pain allows. We will clamp the NG tube for an hour after their administration. Problem: Chronic
[2019-07-14] MEDS: MORPHINE SULFATE 2 MG/ML DISP.SYRIN IV PRN ×3 (12:21→17:24)
[2019-07-14] MEDS ORDERED: ALBUTEROL SULFATE 2.5 MG/0.5 ML VIAL.NEB IH PRN (15:06)
[2019-07-14] MEDS: ONDANSETRON HCL/PF 2 MG/ML VIAL IV PRN ×2 (16:08→23:16)
--- NOTE | 2019-07-14 17:33 | CONS ---
HPI - General Date of Service: 07/14/19 - Patient also examined this a.m. in the ER as well Source: patient, RN/, RN notes reviewed, old records Exam Limitations: no limitations - History of Present Illness Initial Comments: She states she started having abdominal pain on the evening of 07/13/2019. She then started vomiting. She thought this might be another blockage like last year and presented to the ER in [place]. CT scan there showed dilated small intestine with a transition point in the distal ileum. There is no surgeon at that institution and she was transferred here for management. She was admitted here in August of last year with similar symptoms for small bowel obstruction. The CT scan showed a transition zone and bowel changes in the terminal ileum. She was treated nonoperatively with nasogastric suction and IV fluids. She had return of bowel function and was discharged. She has had previous abdominal surgery for an open cholecystectomy and an open hysterectomy. She describes the current problem as "a tight muscle" or a "sphincter around the bowel" in her right lower abdomen. She states that she can push on it and make it move. She says it depends on how much she eats. She is not a precise historian however she states she does move her bowels regularly depending on what she eats. She reports a bowel movement yesterday but has not had a bowel movement or passed gas since. She had a nasogastric tube passed in [place] there is green drainage. Allergies/Adverse Reactions: Allergies paroxetine [From Paxil] Allergy (Intermediate, Verified 07/14/19 12:24) hallucinations erythromycin base Allergy (Mild, Verified 07/14/19 12:24) Hives metoclopramide [From Reglan] Allergy (Mild, Verified 07/14/19 12:24) Hives Tetracyclines Allergy (Mild, Verified 07/14/19 12:24) Hives Home Medications: Home Medications Medication Instructions Recorded Last Taken Albuterol Sulfate [Ventolin HFA] 2 puff INHALATION Q6H PRN 09/03/18 Unknown Allopurinol [Zyloprim] 100 mg PO DAILY 09/03/18 Unknown Atorvastatin Calcium 40 mg PO DAILY 09/03/18 Unknown Gabapentin [Neurontin] 300 mg PO TID 09/03/18 Unknown Gemfibrozil 600 mg PO DAILY 09/03/18 Unknown Glimepiride 4 mg PO BID 09/03/18 Unknown Insulin Glargine,Hum.rec.anlog 38 units SC DAILY 09/03/18 Unknown [Lantus] Levothyroxine Sodium [Levo-T] 100 mcg PO DAILY 09/03/18 Unknown Loratadine 10 mg PO DAILY 09/03/18 Unknown Omeprazole 20 mg PO DAILY 09/03/18 Unknown Promethazine HCl 12.5 mg PO Q4H PRN 09/03/18 Unknown QUEtiapine FUMARATE [Seroquel] 50 mg PO Q8H PRN 09/03/18 Unknown QUEtiapine FUMARATE [Seroquel] 100 mg PO BID@0700,1200 09/03/18 Unknown QUEtiapine FUMARATE [Seroquel] 200 mg PO HS 09/03/18 Unknown Venlafaxine HCl [Venlafaxine HCl 150 mg PO BID 09/03/18 Unknown ER] metFORMIN HCL [Metformin HCl] 850 mg PO BID 09/03/18 Unknown traZODone HCL [Trazodone HCl] 100 mg PO HS PRN 09/03/18 Unknown hydrOXYzine HCL [Atarax] 10 mg PO DAILY PRN 07/14/19 Unknown Procedures Other peripheral nerve or ganglion decompression or lysis of adhesions (08/10/04) Release of carpal tunnel (08/10/04) Medications - Medications Current Medications: Current Medications Sodium Chloride (Sodium Chloride 0.9%) 1,000 mls @ 125 mls/hr IV .Q8H PRN PRN Reason: HYDRATION Stop: 08/13/19 09:01 Last Admin: 07/14/19 16:24 Dose: 125 mls/hr Documented by: Morphine Sulfate (Morphine Sulfate) 1 mg IV Q2H PRN PRN Reason: Severe Pain (pain scale 7-10) Last Admin: 07/14/19 14:57 Dose: 1 mg Documented by: Ondansetron HCl (Zofran) 4 mg IV Q6H PRN PRN Reason: Nausea And Vomiting Stop: 08/13/19 15:08 Last Admin: 07/14/19 16:08 Dose: 4 mg Documented by: Review of Systems - Review of Systems Generalized/Overall Review: Present: Fatigue. Absent: Chills - She does report she feels hot and has a fan on EENTM: Present: No Symptoms Reported Respiratory: Present: Other - Hard to take a deep breath because her abdomen is swollen. Absent: Cough Cardiac: Absent: Chest Pain, Palpitations Abdominal: Present: Nausea, Vomiting, Other - She has lower abdominal pain which is constant, occasionally worse Genitourinary: Absent: Burning Musculoskeletal: Present: No Symptoms Reported Neurological: Present: No Symptoms Reported Skin: Present: No Symptoms Reported Physical Examination - Exam Narrative: She is very somnolent after receiving pain medication on both exams however will answer questions. Vital Signs: Vital Signs - Last Taken Temp 37.9 C 07/14/19 13:34 Pulse 116 H 07/14/19 14:01 Resp 16 07/14/19 13:17 BP 138/63 07/14/19 13:17 Pulse Ox 95 07/14/19 13:17 O2 Oxygen Delivery Method Nasal Cannula Constitutional: Present: Oriented x3, Obese ENT Exam: Present: normal ENT inspection Neck: Present: full range of motion, normal inspection Breasts: Present: Exam deferred Respiratory: Present: no respiratory distress, other - She has required supplemental oxygen Cardiovascular/Chest: Present: regular rate, rhythm Abdomen: Present: other - Very tympanitic. There is no percussion tenderness. She is maximally tender in the right lower quadrant. There is no involuntary guarding, distended /Rectal: Present: Exam deferred Extremity: Present: normal range of motion, no calf tenderness Skin Exam: Present: warm/dry Neurologic: Present: no motor/sensory deficits, oriented x 3 Eye contact: Present: cooperative, normal speech Thoughts: Present: normal thought pattern - Results and Findings: Narrative: CT scan images from [place] were reviewed. There is a transition at the ileocecal valve area with dilated small bowel proximal to this. There are no abdominal wall hernias. The distribution of the small intestine suggests adhesions. There is no free air or free fluid - Assessments/Findings (1) Small bowel obstruction Diagnosis(s): The most likely etiology of the obstruction is adhesions from previous surgery although terminal ileal disease must also be considered. She responded to nonoperative management in 08/2018, so a trial of nasogastric suction and IV fluids would be in order. It will be difficult to ascertain her NG output accurately due to her increased ice chips and water consumption (this was a problem on her previous visit as well) however she has not vomited since the tube was placed. Will need to encourage ambulation. Will obtain flat and upright x-rays in the morning. Unfortunately contrast was not administered for the CT so will need to follow-up bowel gas pattern and clinical response. If administration of psychiatric medication is needed, the tube could be clamped for an hour if need be. I will be out of town for 2 days. I have discussed the case with Dr. Harrington and also with Dr. Vargas who will be covering for me. 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
[2019-07-14] MEDS: ACETAMINOPHEN 1,000 MG/100 ML BTL IV PRN (20:32)
[2019-07-15] MEDS: NORMAL SALINE 1,000 ML IV PRN ×2 (00:29→09:56)
[2019-07-15 06:35] LABS: Hematocrit 42.1 % (37.0-47.0); Hemoglobin 13.3 gm/dL (12.5-16.0); Mean Corpuscular Hemoglobin 28.4 pg (27-31); Mean Corpuscular Hgb Conc 31.6 g/dl (32-36); Mean Platelet Volume 10.1 fl (8-12.5); Platelet Count 251 K/mm3 (150-450); Red Blood Count 4.68 M/mm3 (4.2-5.4); Red Cell Distribution Width 15.5 % (11.5-14.0); White Blood Count 3.6 K/mm3 (4.0-10.5)
[2019-07-15 06:44] LABS: Anion Gap 13.9 mmol/L (6.8-13.8); BUN/Creatinine Ratio 15.2 (9.0-21.6); Calcium * 8.3 mg/dL (7.9-10.9); Carbon Dioxide 26.7 mmol/L (24-32.6); Estimated Creat Clear 82.7; Potassium 3.6 mmol/L (3.4-4.6)
[2019-07-15 06:46] LABS: Total Cells Counted 100
[2019-07-15 07:18] LABS: Atypical (Reactive) Lymph 9 % (0-2); Band 30 % (0-2.0); Eosinophil 1 % (0-3); Immature Granulocyte 6 (0-1); Lymphocyte 20 % (20-51); Monocyte 15 % (0-9); Neutrophil 19 % (42-75); Neutrophil # 0.7 K/mm3 (1.3-6.0)
[2019-07-15 07:20] LABS: Anisocytosis Trace; Ovalocytes 1+; Platelet Estimate Normal (NORMAL)
[2019-07-15] MEDS: ACETAMINOPHEN 1,000 MG/100 ML BTL IV PRN (08:03)
--- NOTE | 2019-07-15 08:19 | PN ---
Subjective - Date and Time Seen Date: 07/15/19 Time: 08:18 Subjective Narrative: She states her nausea is better, and repeatedly asks for a half a glass of ice water. She was up to the sink drinking water overnight. She has started having loose bowel movements, and she states they are partially formed. Objective - Review of Systems Generalized/Overall Review: Denies: Fever Respiratory: Denies: Shortness of Breath Cardiac: Denies: Edema Abdominal: Reports: Nausea - After drinking water overnight, Other - Loose stools Genitourinary Symptoms: Reports: No Symptoms Reported Neurological: Reports: No Symptoms Reported - Vitals Vitals: Last Vital Signs Temp 36.2 C 07/15/19 06:00 Pulse 85 07/15/19 06:00 Resp 20 07/15/19 06:00 BP 153/73 H 07/15/19 06:00 Pulse Ox 98 07/15/19 06:00 - Abnormal Lab Findings Abnormal Lab Findings: Abnormal Lab Results 07/15/19 07/15/19 Range/Units 06:15 06:15 WBC 3.6 L (4.0-10.5) K/mm3 MCHC 31.6 L (32-36) g/dl RDW 15.5 H (11.5-14.0) % Neutrophils % (Manual) 19 L (42-75) % Band Neuts % (Manual) 30 H (0-2.0) % Monocytes % (Manual) 15 H (0-9) % Immature Granulocytes 6 H (0-1) Neutrophils # (Manual) 0.7 L (1.3-6.0) K/mm3 Lymphocytes # (Manual) 0.7 L (1.5-3.5) k/mm3 Atypic/Reactive Lymphs 9 H (0-2) % Sodium 144 H (132-142) mmol/L Plasma Sodium 145 H (130-142) mmol/L Chloride 107 H (97-106) mmol/L Anion Gap 13.9 H (6.8-13.8) mmol/L Random Glucose 192 H (70-110) mg/dL - Exam Constitutional: Present: Alert, No distress, Obese Respiratory: Present: lungs clear, normal breath sounds Cardiovascular/Chest: Present: regular rate, rhythm Abdomen: Present: Normal bowel sounds - NG tube in place, nontender, obese Extremity: Absent: lower extremity edema Assessment/Plan - Problems/Diagnosis (1) Small bowel obstruction Problem: Acute Narrative: NG tube is been in place for approximately 26 hours. She is now having some dark red output via the NG. She has started having partially formed stools. Discussed with the surgeon, and she will clamp her NG and start clear liquids. She has been drinking more water than recommended, and admitted to having some nausea yesterday after drinking. An attempt was made to stop her p.o. intake, but she will go to the bathroom and drink from the sink. If she does well having the NG clamped, possible DC home tomorrow. 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 Blood sugars have been in the 100s. Will resume these medications as her diet advances. (3) Psychiatric diagnosis Problem: Chronic Narrative: Her NG tube being clamped, so we will resume her home psychiatric medicines as prescribed. (4) COPD (chronic obstructive pulmonary disease) Problem: Suspected Narrative: She smokes approximately 2 packs a day, so I suspect she has COPD. She is currently requiring oxygen, which she does not use at home. Lung sounds are clear on exam. Will wean oxygen as tolerated. Continue her home albuterol inhaler as needed. (5) Obesity (BMI 30-39.9) Problem: Chronic
[2019-07-15] MEDS: VENLAFAXINE HCL 150 MG CAP.SR.24H PO SCH ×2 (09:58→21:13)
--- NOTE | 2019-07-15 10:54 | PN ---
Dictated Progress Note - Date and Time Seen: Date: 07/15/19 Time: 10:53 - Progress Note Narrative: Doing well, having stools, min abd pain. Vital Signs - Last Taken Temp 36.5 C 07/15/19 10:00 Pulse 80 07/15/19 10:00 Resp 18 07/15/19 10:00 BP 142/72 07/15/19 10:00 Pulse Ox 97 07/15/19 10:00 Abnormal/Pending Laboratory Last 24 HRS 07/15/19 07/15/19 06:15 06:15 WBC 3.6 L MCHC 31.6 L RDW 15.5 H Neutrophils % (Manual) 19 L Band Neuts % (Manual) 30 H Monocytes % (Manual) 15 H Immature Granulocytes 6 H Neutrophils # (Manual) 0.7 L Lymphocytes # (Manual) 0.7 L Atypic/Reactive Lymphs 9 H Sodium 144 H Plasma Sodium 145 H Chloride 107 H Anion Gap 13.9 H Random Glucose 192 H NAD non labored respirations abd obese, non tender Imp: resolving SBO Plan clamp NG and dc if tolerates start clears
[2019-07-15] MEDS: QUEtiapine FUMARATE 100 MG TABLET PO SCH (13:35)
[2019-07-15] MEDS ORDERED: PROMETHAZINE HCL 25 MG TABLET PO PRN (16:42)
[2019-07-15] MEDS ORDERED: QUEtiapine FUMARATE 100 MG TABLET PO SCH (21:00)
[2019-07-16] MEDS: QUEtiapine FUMARATE 100 MG TABLET PO SCH ×2 (07:12→11:43)
--- NOTE | 2019-07-16 08:18 | PN ---
Dictated Progress Note - Date and Time Seen: Date: 07/16/19 Time: 08:16 - Progress Note Narrative: Feeling better. Having bowel function. Hilario solid breakfast. No n/v. Vital Signs - Last Taken Temp 36.3 C 07/16/19 06:31 Pulse 74 07/16/19 06:31 Resp 18 07/16/19 06:31 BP 138/6 07/16/19 06:31 Pulse Ox 96 07/16/19 06:31 NAD non labored respirations abd obese, non distended, non tender skin warm dry ROS: see HPI Imp: resolved SBO Plan dc home today d/w Dr. Harrington
[2019-07-16] MEDS: VENLAFAXINE HCL 150 MG CAP.SR.24H PO SCH (08:43)
--- NOTE | 2019-07-16 12:54 | DS ---
(1) Small bowel obstruction Problem: Resolved (2) Diabetes Problem: Chronic Qualifiers: Diabetes mellitus terminal carman insulin use: with fdc use (3) Psychiatric diagnosis Problem: Chronic (4) COPD (chronic obstructive pulmonary disease) Problem: Suspected (5) Obesity (BMI 30-39.9) Problem: Chronic Date of Discharge:: 07/16/19 Description of Stay: Patient with past medical history of previous small bowel obstruction, diabetes, obesity, tobacco use presented to the ER in [place] for vomiting. She had a small bowel obstruction last August, and this feels similar. She was able to eat a small amount the day before admission, but started vomiting around 6:00 pm. Her last bowel movement was the night before admission. An NG tube was placed while she was in [place], and she was transferred to our facility. She had no further vomiting and her nausea improved. The NG tube was clamped on 07/15, and she tolerated clear liquids. It was removed later in the day on 07/15. Her diet was advanced to a consistent carb diet on 07/16, which she tolerated without nausea or vomiting. She had persistent loose stools over the last day of her admission. She felt comfortable leaving on the day of discharge. Procedures Performed: none Results and Findings: Lab Pending Results 07/15/19 06:15: WBC 3.6 L, RBC 4.68, Hgb 13.3, Hct 42.1, MCV 90.0, MCH 28.4, MCHC 31.6 L, RDW 15.5 H, Plt Count 251, MPV 10.1, Neutrophils % (Manual) 19 L, Band Neuts % (Manual) 30 H, Lymphocytes % (Manual) 20, Monocytes % (Manual) 15 H, Eosinophils % (Manual) 1, Immature Granulocytes 6 H, Neutrophils # (Manual) 0.7 L, Lymphocytes # (Manual) 0.7 L, Monocytes # (Manual) 0.5, Eosinophils # (Manual) 0.0, Atypic/Reactive Lymphs 9 H, Platelet Estimate Normal, Anisocytosis Trace, Ovalocytes 1+ 07/15/19 06:15: Sodium 144 H, Plasma Sodium 145 H, Potassium 3.6, Chloride 107 H, Carbon Dioxide 26.7, Anion Gap 13.9 H, BUN 10, Creatinine 0.66, Est GFR (Non- Af Amer) 96, BUN/Creatinine Ratio 15.2, Random Glucose 192 H, Calcium 8.3 Discharge Location: Home Disposition: Home self-care Condition: Fair Discharge Activity: Activity as tolerated Discharge Diet: Resume usual diet Additional Patient Instructions (free text): -Please make TCM appointment with her PCP within the next week. Thank you! Anushka @ [facility] [phone]. Complete Home Medications List: Complete Home Medication List: Albuterol Sulfate [Ventolin HFA] 2 puff INHALATION Q6H PRN 09/03/18 Allopurinol [Zyloprim] 100 mg PO DAILY 09/03/18 Atorvastatin Calcium 40 mg PO DAILY 09/03/18 Gabapentin [Neurontin] 300 mg PO TID 09/03/18 Gemfibrozil 600 mg PO DAILY 09/03/18 Glimepiride 4 mg PO BID 09/03/18 Insulin Glargine,Hum.rec.anlog [Lantus] 38 units SC DAILY 09/03/18 Levothyroxine Sodium [Levo-T] 100 mcg PO DAILY 09/03/18 Loratadine 10 mg PO DAILY 09/03/18 Omeprazole 20 mg PO DAILY 09/03/18 Promethazine HCl 12.5 mg PO Q4H PRN 09/03/18 QUEtiapine FUMARATE [Seroquel] 50 mg PO Q8H PRN 09/03/18 QUEtiapine FUMARATE [Seroquel] 100 mg PO BID@0700,1200 09/03/18 QUEtiapine FUMARATE [Seroquel] 200 mg PO HS 09/03/18 Venlafaxine HCl [Venlafaxine HCl ER] 150 mg PO BID 09/03/18 metFORMIN HCL [Metformin HCl] 850 mg PO BID 09/03/18 traZODone HCL [Trazodone HCl] 100 mg PO HS PRN 09/03/18 hydrOXYzine HCL [Atarax] 10 mg PO DAILY PRN 07/14/19
[2019-07-16 13:21] VITALS: BP 150/77
== END 2019-07-16 14:11 | disposition home or self-care (01) | DRG 390 ==
LOC: MS 07:47 → ER 07:47 → MS 10:23
PROVIDERS: ADMIT Family Medicine; ATTEND Family Medicine
CPT/HCPCS: 36415; 71010; 71045; 74019; 74020; 80048; 85007; 85025; 96361; 96374; 96375; 99284; G0378; J0131; J2405